=== PATIENT | male | born 1945 | race Caucasian/White ===

== ENCOUNTER 2020-07-21 10:30 | Emergency (ER) | payer OTHER ==
[2020-07-21 10:41] VITALS: BP 135/74; PULSE 87; TEMP 97.3; BMI 31.1
== END 2020-07-21 12:01 | disposition home or self-care (01) ==
LOC: FER 10:30
DX: R06.01 Orthopnea (principal); R05 Cough; R61 Generalized hyperhidrosis; Z03.818 Encounter for observation for suspected exposure to other biological agents ruled out
CPT/HCPCS: 71045-TC-FY; 99284-25; C9803; U0003

== ENCOUNTER 2021-06-24 13:33 | Inpatient (IN) | payer OTHER ==
[2021-06-24 13:52] VITALS: TEMP 97.9; BMI 31.1
[2021-06-24] MEDS ORDERED: NITROGLYCERIN SUBLINGUAL 1/150 0.4 MG TAB ONE (14:09)
[2021-06-24] MEDS ORDERED: NITROGLYCERIN SUBLINGUAL 1/150 0.4 MG TAB SL ONE (14:09)
[2021-06-24] MEDS ORDERED: ASPIRIN 81 MG CHEWABLE TABLETS PO ONE (14:09)
[2021-06-24] MEDS ORDERED: ASPIRIN 81 MG CHEWABLE TABLETS ONE (14:10)
[2021-06-24 15:02] LABS: EOS % 2.3 % (0-4.5)
[2021-06-24 15:03] LABS: BASO % 4.5 % (0-2.0); HEMOGLOBIN 16.1 GM/dl (11.7-16.9); INR 1.08 (0.82-1.09); LYMPH % 10.6 % (8-40); MCH 29.6 pg (25.7-33.7); MCHC 33.6 g/dl (32.0-35.9); MEAN CELL VOLUME 88.2 fl (80-96); MEAN PLT VOLUME 9.6 fl (7.5-11.1); MONO % 6.2 % (3.8-10.2); NEUT % 76.4 % (42.8-82.8); PLATELET COUNT 181 10^3/uL (134-434); RBC 5.45 M/mm3 (4.00-5.60); RDW 13.2 % (11.9-15.9); WHITE BLOOD COUNT 7.9 K/mm3 (4.0-10.8)
[2021-06-24 15:07] LABS: ALBUMIN 4.5 g/dl (3.4-5.0); BILIRUBIN,TOTAL 1.1 mg/dl (0.2-1); CALCIUM 9.9 mg/dl (8.5-10); CREATININE 1.2 mg/dl (0.55-1.3)
[2021-06-24] MEDS ORDERED: METOPROLOL TARTRATE 25 MG TABLET (FP) PO ONE (16:06)
[2021-06-24] MEDS ORDERED: HEPARIN NA (PORCINE) 5,000 UNITS/ML 1ML VIAL IVPUSH PRN ×2 (16:07)
[2021-06-24] MEDS ORDERED: HEPARIN INFUSION - 25,000 UNITS/500 ML INFUS.BAG IVPB SCH (16:15)
[2021-06-24] MEDS ORDERED: HEPARIN NA (PORCINE) 5,000 UNITS/ML 1ML VIAL ONE (16:29)
[2021-06-24] MEDS ORDERED: METOPROLOL TARTRATE 50 MG TABLET (FP) ONE (16:29)
[2021-06-24] MEDS ORDERED: HEPARIN INFUSION - 25,000 UNITS/500 ML INFUS.BAG IVPB ONE (16:29)
[2021-06-24] MEDS ORDERED: morphine SULFATE 4 MG/ML VIAL ONE (16:40)
[2021-06-24] MEDS ORDERED: morphine SULFATE 4 MG/ML VIAL IVPUSH ONE (16:48)
[2021-06-24] MEDS ORDERED: MUPIROCIN 2% TOPICAL OINTMENT FOR DECOLONIZATION NS SCH (22:00)
[2021-06-24] MEDS ORDERED: CHLORHEXIDINE GLUCONATE 4% CLEANSER FOR DECOLONIZATION TP SCH (22:00)
[2021-06-24] MEDS ORDERED: ATORVASTATIN CA 80 MG TABLET (FP) PO SCH (22:00)
[2021-06-24] MEDS ORDERED: CLOPIDOGREL BISULFATE 300 MG TABLET PO ONE (22:05)
[2021-06-24 22:28] VITALS: BP 97/70
[2021-06-24 23:41] VITALS: PULSE 65
== END 2021-06-25 00:49 | disposition short-term general hospital (02) | DRG 282 ==
LOC: FER 13:33 → JICU 22:22
PROVIDERS: ADMIT Internal Medicine; ATTEND Internal Medicine
DX: I21.3 ST elevation (STEMI) myocardial infarction of unspecified site (principal)
CPT/HCPCS: 36415; 71045-TC-FY; 80053; 82550; 82553; 84484; 85025; 85610; 93005; 99291; C9803; J1644; U0003; U0005

== ENCOUNTER 2021-07-22 20:15 | Emergency (ER) | payer OTHER ==
[2021-07-22 20:26] VITALS: BP 127/69; PULSE 73; TEMP 97.7; BMI 32.5
[2021-07-22 21:11] LABS: BASO % 0.7 % (0-2.0); EOS % 3.2 % (0-4.5); HEMATOCRIT 45.6 % (35.4-49); HEMOGLOBIN 15.6 GM/dL (11.7-16.9); LYMPH % 25.7 % (8-40); MCH 29.8 pg (25.7-33.7); MCHC 34.1 g/dl (32.0-35.9); MEAN CELL VOLUME 87.3 fl (80-96); MEAN PLT VOLUME 8.9 fl (7.5-11.1); MONO % 7.3 % (3.8-10.2); NEUT % 63.1 % (42.8-82.8); PLATELET COUNT 190 10^3/uL (134-434); RBC 5.23 M/mm3 (4.00-5.60); RDW 13.9 % (11.9-15.9); WHITE BLOOD COUNT 7.3 K/mm3 (4.0-10.0)
[2021-07-22 21:13] LABS: ALBUMIN 4.7 g/dl (3.4-5.0); BILIRUBIN,TOTAL 1.5 mg/dl (0.2-1); CALCIUM 9.1 mg/dl (8.5-10)
[2021-07-22 21:36] LABS: EPITHELIAL CELLS RARE /hpf
[2021-07-22 21:37] LABS: URINE MUCUS 2+
[2021-07-22 21:42] LABS: N-TERMINAL BNP 299.4 pg/ml (5-450)
[2021-07-22] MEDS ORDERED: MAGNESIUM CITRATE 300 ML BOTTLE PO ONE (22:07)
[2021-07-22] MEDS ORDERED: MAGNESIUM CITRATE 300 ML BOTTLE ONE (22:12)
== END 2021-07-22 22:24 | disposition home or self-care (01) ==
LOC: FER 20:15
DX: R10.10 Upper abdominal pain, unspecified (principal); K59.00 Constipation, unspecified
CPT/HCPCS: 36415; 71045-TC-FY; 74019-TC-FY; 80053; 81003; 81015; 82550; 82553; 83605; 83880; 84484; 85025; 87086; 99285-25; C9803; U0003; U0005

== ENCOUNTER 2021-09-27 14:58 | Observation (INO) | payer OTHER ==
[2021-09-27 16:20] LABS: INR 1.09 (0.83-1.09); PROTHROMBIN TIME (PATIENT) 12.5 SEC (9.7-13.0)
[2021-09-27] MEDS ORDERED: ASPIRIN 81 MG CHEWABLE TABLETS PO ONE (16:22)
[2021-09-27 16:23] LABS: ACTIVATED PTT 37.3 SECONDS (25.2-36.5)
[2021-09-27 16:26] LABS: BILIRUBIN,TOTAL 1.5 mg/dl (0.2-1); CREATININE 0.9 mg/dl (0.55-1.3); TOT PROT 6.9 g/dl (6.4-8.2)
[2021-09-27] MEDS ORDERED: ASPIRIN 81 MG CHEWABLE TABLETS ONE (16:26)
[2021-09-27 17:16] LABS: BASO % 0.9 % (0-2.0); EOS % 7.1 % (0-4.5); HEMATOCRIT 40.3 % (35.4-49); HEMOGLOBIN 13.5 GM/dL (11.7-16.9); LYMPH % 26.1 % (8-40); MCH 29.6 pg (25.7-33.7); MCHC 33.5 g/dl (32.0-35.9); MEAN CELL VOLUME 88.4 fl (80-96); MEAN PLT VOLUME 9.5 fl (7.5-11.1); MONO % 7.9 % (3.8-10.2); PLATELET COUNT 190 10^3/uL (134-434); RBC 4.56 M/mm3 (4.00-5.60); RDW 14.1 % (11.9-15.9); WHITE BLOOD COUNT 6.1 K/mm3 (4.0-10.0)
[2021-09-27 21:05] VITALS: BMI 29.8
[2021-09-27] MEDS ORDERED: MELATONIN 1 MG TABLET PO PRN (22:08)
[2021-09-28 08:13] LABS: ALBUMIN 3.5 g/dl (3.4-5.0); BILIRUBIN,TOTAL 1.4 mg/dl (0.2-1); CALCIUM 8.9 mg/dl (8.5-10); MAGNESIUM 1.9 mg/dL (1.8-2.4); TOT PROT 6.2 g/dl (6.4-8.2)
[2021-09-28 08:55] LABS: BASO % 1.2 % (0-2.0); EOS % 6.9 % (0-4.5); HEMATOCRIT 39.9 % (35.4-49); HEMOGLOBIN 13.5 GM/dL (11.7-16.9); LYMPH % 23.5 % (8-40); MCH 29.8 pg (25.7-33.7); MCHC 33.8 g/dl (32.0-35.9); MEAN PLT VOLUME 9.4 fl (7.5-11.1); MONO % 7.8 % (3.8-10.2); NEUT % 60.6 % (42.8-82.8); PLATELET COUNT 169 10^3/uL (134-434); RBC 4.54 M/mm3 (4.00-5.60); RDW 14.2 % (11.9-15.9); WHITE BLOOD COUNT 5.9 K/mm3 (4.0-10.0)
[2021-09-28] MEDS ORDERED: LISINOPRIL 5 MG TABLET PO SCH (10:00)
[2021-09-28] MEDS ORDERED: REGADENOSON 0.4 MG/5 ML PRE-FILLED SYRINGE IVPUSH ONE ×2 (10:00→12:46)
[2021-09-28] MEDS ORDERED: ASPIRIN 81 MG CHEWABLE TABLETS PO SCH (10:00)
[2021-09-28] MEDS ORDERED: PRASUGREL HCL 10 MG TAB PO SCH (10:00)
[2021-09-28] MEDS ORDERED: PANTOPRAZOLE 40 MG TABLET PO SCH (10:00)
[2021-09-28] MEDS ORDERED: metoPROLOL SUCCINATE 25 MG TAB.SR.24H (FP) PO SCH (10:00)
[2021-09-28 14:49] VITALS: BP 103/57; PULSE 64; TEMP 97.5
[2021-09-28] MEDS ORDERED: ATORVASTATIN CA 80 MG TABLET (FP) PO SCH (22:00)
== END 2021-09-28 16:23 | disposition home or self-care (01) ==
LOC: FER 14:58 → FM/S 19:32
PROVIDERS: ADMIT Hospitalist; ATTEND Nurse Practitioner Acute Care
PROC: 3E033GC Introduction of Other Therapeutic Substance into Peripheral Vein, Percutaneous Approach (ICD-10-PCS; principal; 2021-09-27)
DX: I25.10 Atherosclerotic heart disease of native coronary artery without angina pectoris (principal); Z20.822 Contact with and (suspected) exposure to COVID-19; Z88.2 Allergy status to sulfonamides; I24.9 Acute ischemic heart disease, unspecified; Z29.9 Encounter for prophylactic measures, unspecified; Z95.1 Presence of aortocoronary bypass graft; I21.4 Non-ST elevation (NSTEMI) myocardial infarction; Z96.652 Presence of left artificial knee joint; Z88.0 Allergy status to penicillin; I25.2 Old myocardial infarction; Z87.891 Personal history of nicotine dependence
CPT/HCPCS: 36415; 71045-TC-FY; 78452-TC; 80053; 80061; 83690; 83735; 84443; 84484; 85025; 85610; 85730; 87426; 93005; 93017; 93306-TC; 96374; 99285-25; A9502; C9803; G0378; J2785; U0003; U0005